=== PATIENT | male | born 1960 | race Caucasian/White ===

== ENCOUNTER 2023-06-24 15:43 | Emergency (ER) | payer OTHER, SELFPAY ==
[2023-06-24 15:52] VITALS: BP 147/97; PULSE 79; RESP 18; TEMP 37.6; O2SAT 97; BMI 28.6
--- NOTE | 2023-06-24 16:08 | ED.EYEPROB1 ---
Documented by User: [email or web address] Finley 06/24/23 16:22 HPI - Eye Problem General Chief complaint: Eye Problems Stated complaint: Eye, Foreign Body Time Seen by Provider: 06/24/23 15:57 Source: patient Mode of arrival: walk-in Limitations: no limitations History of Present Illness HPI Narrative: patient is a 62-year-old male presents to the Emergency Room with concerns of foreign body in the right eye, patient wears glasses, states he was walking under a rack when debris fell and he felt like something got into his right eye. Patient states he tried to irrigate at the facility with no relief, denies visual disturbance, denies pain. Upon arrival to the Emergency Room after triage patient felt after moving and blinking the piece of foreign body fell out and he is currently asymptomatic. Patient does not wear contacts. Patient does wear eyeglasses. Patient denies any vision loss or headache. 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) Mechanism: Denies none Treatments Prior to Arrival: Reports irrigated eye Related Data Patient tetanus UTD: Yes Allergies Allergy/AdvReac Type Severity Reaction Status Date / Time No Known Drug Allergies Allergy Verified 06/24/23 15:55 Review of Systems ROS Constitutional Denies: fever or chills Eyes Reports: eye discomfort; Denies: change in vision Ears, nose, mouth, and throat Denies: throat pain Cardiovascular Denies: chest pain Respiratory Denies: shortness of breath Gastrointestinal Denies: abdominal pain Musculoskeletal Denies: back pain or neck pain Integumentary/Breast Denies: rash Neurological Denies: headache Psychiatric Denies: anxiety Endocrine Denies: excessive urination Exam Narrative Exam Narrative: Nurses's note reviewed and patient is not hypoxic. General: The patient appears well and in no apparent distress. Patient is resting comfortably on cart. Skin: Warm, dry, no pallor noted. Head: Normocephalic, atraumatic Neck: Supple, trachea mid-line, no tenderness, no lymphadenopathy Eye: Normal extraocular motion, pupils were equal round and reactive to light, the patient had no pain with extraocular motion. The patient had fluorescein dye was instilled to right eye. following. The patient had exam with madrigal lamp that did showed no uptake over cornea. The patient had no involvement over the pupil. There was evidence of conjunctival injection. The patient's eyelid was everted and swept with no evidence of foreign body. The patient had no swelling of the upper/lower eyelid. No evidence of hyphema. No evidence of preseptal cellulitis or orbital cellulitis. Ears, Nose, Mouth, and Throat: oral mucosa is moist Respiratory: Patient is in no distress Neurological: A&O x4, normal speech Psychiatric: Cooperative Constitutional Vital Signs, click to edit/add: Last Vital Signs Temp 99.7 F 06/24/23 15:52 Pulse 79 06/24/23 15:52 Resp 18 06/24/23 15:52 BP 147/97 H 06/24/23 15:52 Pulse Ox 97 06/24/23 15:52 O2 Del Method Room Air 06/24/23 15:52 Course Vital Signs Vital signs: Vital Signs Temperature 99.7 F 06/24/23 15:52 Pulse Rate 79 06/24/23 15:52 Respiratory Rate 18 06/24/23 15:52 Blood Pressure 147/97 H 06/24/23 15:52 Pulse Oximetry 97 06/24/23 15:52 Oxygen Delivery Method Room Air 06/24/23 15:52 Temperature 99.7 F 06/24/23 15:52 Pulse Rate 79 06/24/23 15:52 Respiratory Rate 18 06/24/23 15:52 Blood Pressure 147/97 H 06/24/23 15:52 Pulse Oximetry 97 06/24/23 15:52 Oxygen Delivery Method Room Air 06/24/23 15:52 MDM - Eye Problem MDM Narrative Medical decision making narrative: visual acuity with patient's glasses is 20/30 both eyes, right and left. Patient cannot see at all well without his glasses, tetanus was updated. Patient had a foreign body that recently fell out in the waiting room, no evidence of corneal abrasion but scleral abrasion as possible. We discussed follow-up with his eye doctor will start on Bleph-10 ophthalmic prophylactically, patient does not wear contacts. The patient is to followup with primary care physician in next 2-3 days or to return to the emergency department should any of the signs or symptoms worsen or new symptoms develop. Patient had questions answered. The patient agrees with the following Diagnosis and Treatment plan and the patient will be discharged home. Differential Diagnosis Differential diagnosis: Likely corneal abrasion and conjunctivitis Discharge Plan Discharge Chief Complaint: Eye Problems Clinical Impression: Conjunctival injection, Foreign body in eyeball, right Patient Disposition: Home, Self-Care Time of Disposition Decision: 16:21 Condition: Good Instructions: Eye Foreign Body (ED) Additional Instructions: Bleph-10 ophthalmic 1-2 drops every 3-4 hours for the next five days. Dispensed home. Stand Alone Forms: Portal Instructions Referrals: LUCRETIA LEONE [Physician] - As soon as possible Physician,Non-Staff, [Primary Care Provider] - 1 week Discharge Date/Time: 06/24/23 16:26 Documented by User: Osmani Bruner MD 06/24/23 18:55 HPI - Eye Problem General Chief complaint: Eye Problems Stated complaint: Eye, Foreign Body Time Seen by Provider: 06/24/23 15:57 Related Data Allergies Allergy/AdvReac Type Severity Reaction Status Date / Time No Known Drug Allergies Allergy Verified 06/24/23 15:55 Exam Constitutional Vital Signs, click to edit/add: Last Vital Signs Temp 99.7 F 06/24/23 15:52 Pulse 79 06/24/23 15:52 Resp 18 06/24/23 15:52 BP 147/97 H 06/24/23 15:52 Pulse Ox 97 06/24/23 15:52 O2 Del Method Room Air 06/24/23 15:52 Course Vital Signs Vital signs: Vital Signs Temperature 99.7 F 06/24/23 15:52 Pulse Rate 79 06/24/23 15:52 Respiratory Rate 18 06/24/23 15:52 Blood Pressure 147/97 H 06/24/23 15:52 Pulse Oximetry 97 06/24/23 15:52 Oxygen Delivery Method Room Air 06/24/23 15:52 Temperature 99.7 F 06/24/23 15:52 Pulse Rate 79 06/24/23 15:52 Respiratory Rate 18 06/24/23 15:52 Blood Pressure 147/97 H 06/24/23 15:52 Pulse Oximetry 97 06/24/23 15:52 Oxygen Delivery Method Room Air 06/24/23 15:52 MDM - Eye Problem MDM Narrative Medical decision making narrative: visual acuity with patient's glasses is 20/30 both eyes, right and left. Patient cannot see at all well without his glasses, tetanus was updated. Patient had a foreign body that recently fell out in the waiting room, no evidence of corneal abrasion but scleral abrasion as possible. We discussed follow-up with his eye doctor will start on Bleph-10 ophthalmic prophylactically, patient does not wear contacts. The patient is to followup with primary care physician in next 2-3 days or to return to the emergency department should any of the signs or symptoms worsen or new symptoms develop. Patient had questions answered. The patient agrees with the following Diagnosis and Treatment plan and the patient will be discharged home. I, Dr Bruner, have reviewed the above progress note and course of action in the ER; agree with the above. I have gone over history and physical, and discussed disposition and treatment plan with the patient. Discharge Plan Discharge Chief Complaint: Eye Problems Clinical Impression: Conjunctival injection, Foreign body in eyeball, right Patient Disposition: Home, Self-Care Time of Disposition Decision: 16:21 Condition: Good Instructions: Eye Foreign Body (ED) Additional Instructions: Bleph-10 ophthalmic 1-2 drops every 3-4 hours for the next five days. Dispensed home. Stand Alone Forms: Portal Instructions Referrals: LUCRETIA LEONE [Physician] - As soon as possible Physician,Non-Staff, [Primary Care Provider] - 1 week Discharge Date/Time: 06/24/23 16:26
[2023-06-24] MEDS: SULFACETAMIDE SODIUM 10% OP 300 DROP/15 ML BOTTLE OP (16:18)
[2023-06-24] MEDS: ADACEL DIPH,PERTUSS(ACELL),TET VAC/PF 0.5 ML ADULT SYRINGE IM (16:18)
[2023-06-24] MEDS: FLUORESCEIN SODIUM 1 MG STRIP OP (16:19)
== END 2023-06-24 16:26 | disposition home or self-care (01) ==
PROVIDERS: Emergency Provider Emergency Medicine
DX: T15.81XA Foreign body in other and multiple parts of external eye, right eye, initial encounter (principal); H11.89 Other specified disorders of conjunctiva; Z23 Encounter for immunization
CPT/HCPCS: 90471; 90715; 99283